=== PATIENT | female | born 1980 | race Two or more races ===

== ENCOUNTER 2021-03-26 16:32 | Emergency (ER) | payer MEDICAID ==
[~2021-03-26] VITALS: Ht 157.5 cm; Wt 204.1 kg
[2021-03-26] MEDS ORDERED: ASPirin 81 mg TAB PO ONE (16:45)
[2021-03-26] MEDS ORDERED: FUROSEMIDE 20 MG TAB PO ONE (16:45)
[2021-03-26] MEDS ORDERED: NITROGLYCERIN 50MG/250ML 250 ML IV SCH (18:00)
[2021-03-26 18:36] LABS: Basophils # (auto) 0.1 10 ^3/uL (0-0.2); Basophils % (auto) 0.9 % (0.0-2.0); Eosinophils # (auto) 0.5 10 ^3/uL (0-0.8); Eosinophils % (auto) 5.2 % (0.0-7.0); Hematocrit 42.4 % (36.0-46.0); Hemoglobin 13.7 g/dL (12.2-16.2); Lymphocytes # (auto) 2.6 10 ^3/uL (0.4-5.4); Mean Corpuscular Hemoglobin 29.7 pg (28.0-32.0); Mean Corpuscular Hgb Conc. 32.4 g/dL (32.0-36.0); Mean Corpuscular Volume 91.6 fL (80.0-100.0); Monocytes # (auto) 0.8 10 ^3/uL (0-1.3); Neutrophils # (auto) 5.9 10 ^3/uL (1.6-8.6); Neutrophils % (auto) 59.9 % (37.0-80.0); Nucleated Red Blood Cells % 0.1 %; Red Blood Cells 4.63 10^6/uL (4.0-5.20); Red Cell Distribution Width 14.9 % (11.8-14.3); White Blood Cell 9.8 10^3/uL (4.4-10.8)
[2021-03-26 18:51] LABS: Albumin 2.5 g/dL (3.4-5.0); Anion Gap 5 (5-15); Blood Urea Nitrogen 6 mg/dL (7-18); Calcium 8.6 mg/dL (8.5-10.1); Carbon Dioxide 25 mmol/L (21-32); Chloride 110 mmol/L (98-107); Glucose 109 mg/dL (74-106); Potassium 3.9 mmol/L (3.5-5.1); Sodium 140 mmol/L (136-145)
[2021-03-26 18:56] LABS: Alanine Aminotransferase 21 U/L (13-56); Alkaline Phosphatase 76 U/L (45-117); Aspartate Aminotransferase 20 U/L (15-37); BUN/Creatinine Ratio 8.8; Bilirubin, Total 0.2 mg/dL (0.2-1.0); GFR African American 123 mL/min; GFR Non-African American 101 mL/min; Total Protein 7.2 g/dL (6.4-8.2)
[2021-03-26 20:09] LABS: Urine Bacteria NONE SEEN /hpf (None Seen); Urine Blood 1+ /uL (Negative); Urine Hyaline Cast FEW /lpf (0 - 2); Urine Mucus MODERATE (None Seen); Urine Specific Gravity 1.029 (1.001-1.035); Urine WBC 3 /hpf (0 - 5)
[2021-03-26] MEDS ORDERED: cloNIDine HCL 0.1 MG TAB PO ONE (21:00)
[2021-03-26] MEDS ORDERED: IOHEXOL 350 MG/ML 100ML IJ ONE (23:22)
[2021-03-26] MEDS ORDERED: ACETAMINOPHEN 500 MG TAB PO ONE (23:45)
[2021-03-27 03:00] VITALS: BP 134/86
== END 2021-03-27 03:35 | disposition home or self-care (01) ==
LOC: ER 16:32
DX: R07.9 Chest pain, unspecified (principal); I11.0 Hypertensive heart disease with heart failure; I50.9 Heart failure, unspecified; E11.9 Type 2 diabetes mellitus without complications; Z20.822 Contact with and (suspected) exposure to COVID-19
CPT/HCPCS: 36415; 71045; 71260; 80053; 81001; 83880; 84484; 85025; 85379; 87426; 93005; 99285; Q9967

== ENCOUNTER 2021-12-18 21:17 | Emergency (ER) | payer MEDICAID ==
[~2021-12-18] VITALS: Ht 154.9 cm; Wt 199.6 kg
[2021-12-18 22:00] VITALS: BP 169/92
[2021-12-18 22:32] LABS: Basophils # (auto) 0.1 10 ^3/uL (0-0.2); Basophils % (auto) 0.9 % (0.0-2.0); Eosinophils # (auto) 0.4 10 ^3/uL (0-0.8); Eosinophils % (auto) 4.5 % (0.0-7.0); Hematocrit 42.1 % (36.0-46.0); Hemoglobin 13.5 g/dL (12.2-16.2); Lymphocytes # (auto) 2.5 10 ^3/uL (0.4-5.4); Mean Corpuscular Hemoglobin 29.8 pg (28.0-32.0); Mean Corpuscular Hgb Conc. 32.1 g/dL (32.0-36.0); Mean Corpuscular Volume 92.9 fL (80.0-100.0); Monocytes # (auto) 0.6 10 ^3/uL (0-1.3); Monocytes % (auto) 6.8 % (0.0-12.0); Neutrophils # (auto) 5.4 10 ^3/uL (1.6-8.6); Neutrophils % (auto) 59.8 % (37.0-80.0); Red Blood Cells 4.53 10^6/uL (4.0-5.20); Red Cell Distribution Width 14.7 % (11.8-14.3); White Blood Cell 9.1 10^3/uL (4.4-10.8)
[2021-12-18 22:53] LABS: Albumin 2.7 g/dL (3.4-5.0); BUN/Creatinine Ratio 16.7; Potassium 4.2 mmol/L (3.5-5.1)
[2021-12-18 22:55] LABS: Bilirubin, Total 0.3 mg/dL (0.2-1.0); Total Protein 7.1 g/dL (6.4-8.2)
== END 2021-12-19 05:57 | disposition left against medical advice (07) ==
LOC: ER 21:17
DX: R06.02 Shortness of breath (principal); R42 Dizziness and giddiness; M79.10 Myalgia, unspecified site; R07.9 Chest pain, unspecified; I11.0 Hypertensive heart disease with heart failure; I50.9 Heart failure, unspecified; E11.9 Type 2 diabetes mellitus without complications
CPT/HCPCS: 36415; 71045; 80053; 84484; 85025; 93005

== ENCOUNTER 2022-10-16 17:37 | Emergency (ER) | payer MEDICAID ==
[~2022-10-16] VITALS: Ht 154.9 cm; Wt 200.0 kg
[2022-10-16] MEDS ORDERED: ONDANSETRON ODT 4 MG TAB PO ONE (18:00)
[2022-10-16 18:30] LABS: Basophils # (auto) 0.1 10 ^3/uL (0-0.2); Basophils % (auto) 1.1 % (0.0-2.0); Eosinophils # (auto) 0.3 10 ^3/uL (0-0.8); Eosinophils % (auto) 3.3 % (0.0-7.0); Hematocrit 38.7 % (36.0-46.0); Lymphocytes % (auto) 29.4 % (10.0-50.0); Mean Corpuscular Hemoglobin 30.6 pg (28.0-32.0); Mean Corpuscular Hgb Conc. 33.6 g/dL (32.0-36.0); Monocytes % (auto) 9.6 % (0.0-12.0); Neutrophils # (auto) 5.7 10 ^3/uL (1.6-8.6); Neutrophils % (auto) 56.6 % (37.0-80.0); Nucleated Red Blood Cells % 0.2 %; Red Blood Cells 4.25 10^6/uL (4.0-5.20); Red Cell Distribution Width 15.3 % (11.8-14.3); White Blood Cell 10.1 10^3/uL (4.4-10.8)
[2022-10-16] MEDS ORDERED: MORPHINE SULFATE 4 MG/ML SYR/VIAL IM ONE (18:45)
[2022-10-16 18:46] LABS: Albumin 2.7 g/dL (3.4-5.0); Potassium 3.7 mmol/L (3.5-5.1)
[2022-10-16 18:51] LABS: BUN/Creatinine Ratio 18.4 (10.0-20.0); Bilirubin, Total 0.6 mg/dL (0.2-1.0); Total Protein 8.1 g/dL (6.4-8.2)
[2022-10-16 18:59] LABS: Urine Bacteria FEW /hpf (None Seen); Urine Blood 3+ /uL (Negative); Urine Specific Gravity 1.017 (1.001-1.035); Urine WBC 196 /hpf (0 - 5)
[2022-10-16] MEDS ORDERED: cefTRIAXone 1GM/50ML D5W 50 ML IV ONE (19:45)
[2022-10-16] MEDS ORDERED: SODIUM CHLORIDE 0.9% 1,000 ML IV ONE (19:45)
[2022-10-16] MEDS ORDERED: CEPH-510 PO (20:03)
[2022-10-16] MEDS ORDERED: ACET1CAP14 PO (20:03)
[2022-10-16] MEDS ORDERED: ONDA-144 PO (20:03)
[2022-10-16] MEDS ORDERED: MAGN400S25 PO (22:09)
[2022-10-16] MEDS ORDERED: LACTULOSE 20Gm/30ML SOLN PO ONE (22:15)
[2022-10-17] MEDS ORDERED: MILK OF MAGNESIA 30ML SUSP PO ONE
[2022-10-17] MEDS ORDERED: FLEET ENEMA(ADULT) 135 ML PR ONE
[2022-10-17 05:22] VITALS: BP 118/82
== END 2022-10-17 05:22 | disposition home or self-care (01) ==
LOC: ER 17:37
DX: N12 Tubulo-interstitial nephritis, not specified as acute or chronic (principal); K59.00 Constipation, unspecified; M19.90 Unspecified osteoarthritis, unspecified site; I11.0 Hypertensive heart disease with heart failure; I50.9 Heart failure, unspecified; E11.9 Type 2 diabetes mellitus without complications
CPT/HCPCS: 36415; 74018; 80053; 81001; 83690; 84702; 85025; 96365; 96372; 99285; J0696; J2270; Q0162